=== PATIENT | female | born 1995 | race Caucasian/White ===

== ENCOUNTER 2018-08-09 09:22 | Emergency (ER) | payer OTHER ==
[2018-08-09] MEDS ORDERED: LIDOCAINE 1% INJ-PF (10 MG/ML) 30 ML SDV NEB ONE (10:04)
[2018-08-09] MEDS ORDERED: HYDROCODONE/ACETAMINOPHEN 5-325 MG TABLET PO ONE (10:06)
[2018-08-09] MEDS ORDERED: IBUPROFEN 600 MG TABLET PO ONE (10:25)
--- NOTE | 2018-08-09 10:47 | ER Document Report ---
HPI - HPI Pain Level: 4 Notes: Patient is a 22-year-old female who presents with chief complaint of right lower dental pain and sore throat x2 days. Patient reports that she has been trying to get in to get her wisdom teeth removed but has been having issues with her insurance. Patient reports history of strep throat however she states this feels different. Denies any fever. Patient speaking in full and complete sentences and swallowing without difficulty. - CONSTITUTIONAL Constitutional: REPORTS: Chills. DENIES: Fever - EENT EENT: REPORTS: Sore Throat, Ear Pain - NEURO Neurology: DENIES: Weakness - decreased energy, Dizzinesss / Vertigo - light headedness - RESPIRATORY Respiratory: REPORTS: Coughing - need to cough but hurts too bad Past Medical History - General Information source: Patient - Social History Smoking Status: Never Smoker Frequency of alcohol use: None Drug Abuse: None Family History: Reviewed & Not Pertinent Patient has suicidal ideation: No Patient has homicidal ideation: No Renal/ Medical History: Denies: Hx Peritoneal Dialysis Vertical Provider Document - CONSTITUTIONAL Notes: PHYSICAL EXAMINATION: GENERAL: Well-appearing, well-nourished and in no acute distress, Speaking in full and complete sentences with hoarse voice noted. HEAD: Atraumatic, normocephalic. EYES: Pupils equal round extraocular movements intact, conjunctiva are normal. ENT: Nares patent, oropharynx clear, no exudates or erythema noted, uvula midline, no evidence of peritonsillar abscess. Erythema noted around tooth #31 and 32. No drainable abscess identified. NECK: Normal range of motion LUNGS: No respiratory distress, lung sounds clear to auscultation bilaterally Musculoskeletal: Normal range of motion NEUROLOGICAL: Normal speech, normal gait. PSYCH: Normal mood, normal affect. SKIN: Warm, Dry, normal turgor, no rashes or lesions noted. - INFECTION CONTROL TRAVEL OUTSIDE OF THE [place] IN LAST 30 DAYS: No Course - Re-evaluation Re-evalutation: Patient's physical examination is consistent with dental infection. No evidence of peritonsillar abscess despite patient's complaint of sore throat with hoarse voice. Patient given lidocaine nebulizer for throat pain. Patient reports significant improvement of her sore throat after nebulized lidocaine given. Patient will be placed on Pen-VK for dental infection. Patient declined rapid strep test as she states that she usually gets penicillin if she gets strep throat and I am placing her on penicillin for her dental infection anyways. - Vital Signs Vital signs: Temp Pulse Resp BP Pulse Ox 98.8 F 82 16 142/87 H 100 08/09/18 09:28 08/09/18 09:28 08/09/18 09:28 08/09/18 09:28 08/09/18 09:28 Discharge - Discharge Clinical Impression: Dental infection, Sore throat Condition: Stable Disposition: HOME, SELF-CARE Additional Instructions: SORE THROAT: Sore throats may be caused by viruses, bacteria, or fungi. Most are due to a virus, and must get better on their own. Bacterial sore throats, particularly those due to "strep," need treatment with antibiotics. If an antibiotic is prescribed, be sure to take the medication for a full 10 days. Failure to take the antibiotic can result in complications such as rheumatic fever. Sometimes, an injection of antibiotics is given instead of pills or liquid. This single "shot" is equal in effectiveness to the oral medication. To relieve symptoms, take acetaminophen for pain. Sip clear liquids frequently, or eat popsicles or ice chips. Anesthetic sprays or lozenges may help. Make sure the air in the room is not too dry. Avoid using decongestants or antihistamines. Call the doctor if there is no improvement in two days, or if you have difficulty breathing, increasing throat pain, high fever, rash, or frequent vomiting. PENICILLIN V K: You have been given a prescription for Penicillin VK. Your physician has determined that this is the best antibiotic for your condition. Pen VK can be taken with meals, however more of the antibiotic gets into the bloodstream if it's taken on an empty stomach. Penicillin usually has no side effects. However, allergy to penicillins is common. If you have had an allergic reaction to any drug of the penicillin family, you should never take any other penicillin. Notify your doctor at once if you develop hives, itching, swelling, faintness, or shortness of breath. TOOTHACHE: Your pain is due to dental decay and/or impacted wisdom teeth. The tooth must be repaired in order for you to feel better. You will, therefore, be referred to a dentist. We do not have dentists on the staff at [facility]. Severe swelling or drainage around a tooth usually means a dental abscess. This also requires evaluation and treatment by the dentist, but antibiotics may be prescribed while awaiting dental treatment. You should be rechecked immediately if you develop major swelling of the face, increasing pain, a lump in the jaw or gums, headache, difficulty swallowing, or fever. FOLLOW-UP CARE: If you have been referred to a physician for follow-up care, call the physician s office for an appointment as you were instructed or within the next two days. If you experience worsening or a significant change in your symptoms, notify the physician immediately or return to the Emergency Department at any time for re-evaluation. Please take antibiotics as prescribed. You may take Tylenol or ibuprofen for the pain. Please call and get an appointment with a dentist [facility]. The antibiotic that I have given you will also help with your sore throat if it happens to be caused by a bacterial source such as strep throat. Return to the emergency department if you experience worsening symptoms such as inability to swallow or increased difficulty breathing. Prescriptions: Penicillin V Potassium [Penicillin Vk 500 mg Tablet] 500 mg PO BID #20 tablet
[2018-08-09] MEDS ORDERED: LIDOCAINE 2% VISCOUS SOLN 20 ML UDCUP PO ONE (10:50)
[2018-08-09 10:59] VITALS: BP 124/78
== END 2018-08-09 11:04 | disposition home or self-care (01) ==
LOC: ER 09:22
DX: K04.7 Periapical abscess without sinus (principal); J02.9 Acute pharyngitis, unspecified; K08.89 Other specified disorders of teeth and supporting structures; R05 Cough; H92.09 Otalgia, unspecified ear
CPT/HCPCS: 94640; 99282; J3490 ×2